=== PATIENT | female | born 1985 ===

== ENCOUNTER 2017-03-26 15:02 | Emergency (ER) | payer SELFPAY ==
[2017-03-26 15:09] VITALS: O2SAT 100
[2017-03-26 15:34] LABS: RBC URINE 1 /hpf (0-3); URINE BACTERIA OCC (<OCC); URINE BILIRUBIN NEGATIVE (NEGATIVE); URINE BLOOD NEGATIVE (NEGATIVE); URINE COLOR Yellow (YELLOW); URINE GLUCOSE (UA) NORMAL (Normal); URINE KETONE NEGATIVE (NEGATIVE); URINE LEUKOCYTE ESTERASE NEG Leu/uL (Negative); URINE PROTEIN NEGATIVE (NEGATIVE); URINE UROBILINOGEN NORMAL mg/dL (0.2-1.0); WBC URINE < 1 /hpf (0-5)
[2017-03-26] MEDS ORDERED: Sodium Chloride 0.9% 1,000 ML IV ONE (15:39)
[2017-03-26] MEDS ORDERED: Sodium Chloride 0.9% 1,000 ML ONE (15:55)
[2017-03-26 16:29] LABS: BASO # 0.1 K/uL (0.0-0.2); BASO % 0.8 % (0.0-2.0); EOS # 0.1 K/uL (0.0-0.7); EOS % 0.5 % (0.0-4.0); HEMATOCRIT 37.4 % (34.0-47.0); LYMPH # 2.7 K/uL (1.0-4.3); LYMPH % 23.8 % (20.0-40.0); MEAN CELL VOLUME 85.3 fL (81.0-99.0); MEAN CORPUSCULAR HEMOGLOBIN 27.1 pg (27.0-31.0); MEAN CORPUSCULAR HGB CONC 31.8 g/dL (33.0-37.0); MEAN PLATELET VOLUME 8.8 fL (7.2-11.7); MONO # 0.8 K/uL (0.0-0.8); MONO % 7.3 % (0.0-10.0); NRBC % 0.1 % (0.0-2.0); RED CELL DISTRIBUTION WIDTH 13.1 % (11.5-14.5); WHITE BLOOD COUNT 11.4 K/uL (4.8-10.8)
--- NOTE | 2017-03-26 16:56 | C.PDOC ---
History Of Present Illness 31-year-old female (8 weeks), presents to the emergency department with complaints of lower abdominal pain x2 days. Patient states she had an episode of vaginal spotting one week ago, which resolved. Denies nausea/vomiting , fevers, chills, shortness of breath, chest pain or any other associated symptoms. No other complaints at this time. Time Seen by Provider: 03/26/17 15:23 Chief Complaint (Nursing): Abdominal Pain History Per: Patient History/Exam Limitations: no limitations Onset/Duration Of Symptoms: Days Past Medical History Reviewed: Historical Data, Nursing Documentation, Vital Signs Vital Signs: Last Vital Signs Temp 98 F 03/26/17 15:06 Pulse 92 H 03/26/17 15:06 Resp 20 03/26/17 15:06 BP 128/84 03/26/17 15:06 Pulse Ox 100 03/26/17 18:17 - [employer] Procedures INJECT/INFUSE NEC (09/30/14) Family History: States: No Known Family Hx - Social History Hx Alcohol Use: No Hx Substance Use: No - Immunization History Hx Tetanus Toxoid Vaccination: No Hx Influenza Vaccination: No Hx Pneumococcal Vaccination: No Review Of Systems Except As Marked, All Systems Reviewed And Found Negative. Constitutional: Negative for: Fever, Chills Cardiovascular: Negative for: Chest Pain Respiratory: Negative for: Shortness of Breath Gastrointestinal: Positive for: Abdominal Pain. Negative for: Nausea, Vomiting Genitourinary: Positive for: Vaginal Bleeding (resolved.). Negative for: Dysuria, Frequency Musculoskeletal: Negative for: Back Pain Skin: Negative for: Rash Neurological: Negative for: Weakness Physical Exam - Physical Exam Appears: Non-toxic, No Acute Distress Skin: Warm, Dry, No Rash Eye(s): bilateral: Normal Inspection Nose: Normal Lips: Normal Appearing Neck: Normal ROM Cardiovascular: Rhythm Regular Respiratory: Normal Breath Sounds, No Accessory Muscle Use Gastrointestinal/Abdominal: Soft, Tenderness (B/L lower-quadrant.), No Guarding , No Rebound Extremity: Normal ROM Neurological/Psych: Oriented x3 ED Course And Treatment - Laboratory Results Result Diagrams: 03/26/17 16:22 03/26/17 18:17 O2 Sat by Pulse Oximetry: 100 - CT Scan/US transvaginal US Other Rad Studies (CT/US): Read By Radiologist, Radiology Report Reviewed CT/US Interpretation: Accession No. : [id number]. Patient Name / ID : LOLI WATSON / [id number]. Exam Date : 03/26/2017 16:37:28 ( Approved ). Study Comment : Sex / Age : F / 31Y. Creator : Shania Schafer. Dictator : Shania Schafer. Rn Research : Program Checker : Shania Schafer. Approver2 : Report Date : 03/26/2017 17:59:46. My Comment : . PROCEDURE: OB Pelvic Ultrasound. HISTORY: PELVIC PAIN, BLEEDING. COMPARISON : None available. FINDINGS: UTERUS: Single Live intrauterine gestation. CRL equivalent to 8 weeks 6 days gestatioin. Gestational sac diameter equivalent to 9 weeks 2 days gestation. age (Ultrasound estimated): 9 weeks 1 day +/- 0 weeks 4 days. Date of delivery (Ultrasound estimated) : 10/28. Heart rate: 165.9 bpm. Stephanie-gestational hemorrhage: None. There is mild low-level echoes seen in the gestational sac of uncertain etiology. Uterus measures 10.7 x 5 x 6 cm. No mass. CERVIX: Trace amount of fluid seen in the cervix. RIGHT OVARY: Measures 3.5 x 2.1 x 3.2 cm. No mass. Normal flow. 1.2 x 0.8 x 1 centimeters cyst seen at the right ovary. LEFT OVARY: Measures 2.9 x 1.9 x 2.8 cm. No mass. Normal flow. FREE FLUID: None. OTHER FINDINGS: None. IMPRESSION: Single intrauterine live with ultrasound estimated gestational age of 9 weeks 1 day +/- 0 weeks 4 days. Estimated date of delivery by ultrasound is 10/28/2017. Suspicious for low- level echo in the gestational sac of uncertain etiology. Trace fluid in the cervix. Progress Note: Bloodwork, US OB/Transvaginal and UA ordered and reviewed. Patient given IV NS bolus. 6:10pm- Original chemistry tubes were hemolyzed and nurses unable to draw more blood. Blood obtained by me, left radial artery stick. patient tolerated well. Disposition Counseled Patient/Family Regarding: Studies Performed, Diagnosis, Need For Followup, Rx Given - Disposition Referrals: [facility] [Outside] Disposition: HOME/ ROUTINE Disposition Time: 19:20 Condition: STABLE Additional Instructions: FOLLOW UP WITH YOUR MEDICAL ART THERAPIST WITHIN 1 WEEK USE TYLENOL NEEDED FOR PAIN DRINK PLENTY OF FLUIDS RETURN TO EMERGENCY ROOM IF SYMPTOMS WORSEN SEGUIMIENTO CON THOMAS OB / FLOCCULATOR OPERATOR DENTRO DE 1 SEMANA USE TYLENOL CALLIE SE NECESITA PARA EL DOLOR BEBER MUCHO LQUIDO DEVUELVA A LA CLOTILDE DE EMERGENCIA SI LOS SNTOMAS EMPEORARAN Instructions: First Trimester Vaginal Bleed (ED) Print Language: ECUADOREAN - POA Present On Arrival: None - Clinical Impression Clinical Impression: Pelvic pain affecting , First trimester bleeding - Scribe Statement The provider has reviewed the documentation as recorded by the Scribdesean Gramajo All medical record entries made by the Scribe were at my direction and personally dictated by me. I have reviewed the chart and agree that the record accurately reflects my personal performance of the history, physical exam, medical decision making, and the department course for this patient. I have also personally directed, reviewed, and agree with the discharge instructions and disposition.
--- NOTE | 2017-03-26 18:01 | US ---
PROCEDURE: OB Pelvic Ultrasound HISTORY: PELVIC PAIN, BLEEDING COMPARISON: None available. FINDINGS: UTERUS: Single Live intrauterine gestation. CRL equivalent to 8 weeks 6 days gestatioin Gestational sac diameter equivalent to 9 weeks 2 days gestation age (Ultrasound estimated): 9 weeks 1 day +/- 0 weeks 4 days Date of delivery (Ultrasound estimated) : 10/28/2017 Heart rate: 165.9 bpm. Stephanie-gestational hemorrhage: None. There is mild low-level echoes seen in the gestational sac of uncertain etiology. Uterus measures 10.7 x 5 x 6 cm. No mass CERVIX: Trace amount of fluid seen in the cervix. RIGHT OVARY: Measures 3.5 x 2.1 x 3.2 cm. No mass. Normal flow. 1.2 x 0.8 x 1 centimeters cyst seen at the right ovary. LEFT OVARY: Measures 2.9 x 1.9 x 2.8 cm. No mass. Normal flow. FREE FLUID: None. OTHER FINDINGS: None. IMPRESSION: Single intrauterine live with ultrasound estimated gestational age of 9 weeks 1 day +/- 0 weeks 4 days. Estimated date of delivery by ultrasound is 10/28/2017. Suspicious for low-level echo in the gestational sac of uncertain etiology. Trace fluid in the cervix.
[2017-03-26 18:29] LABS: CHLORIDE 101 mmol/L (98-107); SODIUM 134 mmol/L (132-148)
[2017-03-26 18:30] LABS: POTASSIUM 3.9 mmol/L (3.6-5.2)
[2017-03-26 18:32] LABS: ALKALINE PHOSPHATASE 58 U/L (38-126); ALT/SGPT 13 U/L (9-52); AST/SGOT 22 U/L (14-36); BILIRUBIN,TOTAL 0.4 mg/dL (0.2-1.3); BLOOD UREA NITROGEN 9 mg/dL (7-17); CARBON DIOXIDE 23 mmol/L (22-30); GFR AFRICAN-AMERICAN > 60; GLUCOSE,RANDOM 108 mg/dL (65-105)
[2017-03-26 18:33] LABS: CALCIUM 8.3 mg/dl (8.6-10.4)
[2017-03-26 19:49] VITALS: BP 105/71; PULSE 80; RESP 16; TEMP 98.8
== END 2017-03-26 19:51 | disposition home or self-care (01) ==
LOC: C.ER 15:02
DX: O26.891 Other specified pregnancy related conditions, first trimester (principal); R10.2 Pelvic and perineal pain; O20.8 Other hemorrhage in early pregnancy; Z3A.09 9 weeks gestation of pregnancy
CPT/HCPCS: 76805; 76817; 80053; 81001; 84702; 84703; 85025; 86850; 86900; 96360; 99285; J7040

== ENCOUNTER 2017-10-28 10:10 | Inpatient (IN) | payer MEDICAID ==
[2017-10-28 11:14] VITALS: BMI 47.4
[2017-10-28] MEDS ORDERED: Penicillin G 5 Million Unit Vial IVPB ONE (11:14)
[2017-10-28] MEDS ORDERED: Lactated Ringer's 1,000 ML IV SCH (11:15)
[2017-10-28] MEDS: Lactated Ringer's 1,000 ML IV SCH ×2 (11:16→12:01)
--- NOTE | 2017-10-28 11:35 | OBADHP ---
Datetime: 10/28/2017 11:24 Admit Comment, IP Provider: Pt is a 32 yo edc by lmp and 10wk us presents w/ c/o painful ctx s since 5am and srom at 11am. Ob hx remarkable for Vit D deficiency pt did not take Vit D during preg . unremarkable. gst abn w/ nl gtt. pt placed on ada diet and had 1lb wt jacquelin pmhx: denies pshx: medic: pnv shx: denies tobacco, illicit drugs or etoh I: 39.1wks labor w/ srom P: admit pt uncertain if she desires epidural pcnG VZ vacc PP Pelvic Type - PN: Adequate Extremities - PN: Normal Abdomen - PN: Normal Back - PN: Normal Lungs - PN: Normal Heart - PN: Normal Neurologic - PN: Normal HEENT - PN: Normal General - PN: Normal Presentation-Admit: Vertex FHR - Baseline A Provider: 130 Amniotic Fluid Color, Provider: Clear Membranes, Provider: Ruptured Contraction Comments Provider: q2-4min Comments, ACOG Physical Exam: gbs+ Gestation - Est Wks by US: 39.1 Pool Provider: Positive NICHD Variability Prov Fetus A: Moderate 6-25bpm NICHD Accel Fetus A IP Provider: [id number] FHR Category Provider Fetus A: Category I NICHD Decel Fetus A IP Provider: None Dilatation, Provider: 5 Effacement, Provider: 90 Station, Provider: -2 Genitourinary Exam: Normal
[2017-10-28 11:41] LABS: BASO # 0.1 K/uL (0.0-0.2); BASO % 0.7 % (0.0-2.0); EOS % 0.1 % (0.0-4.0); HEMOGLOBIN 13.2 g/dL (11.0-16.0); LYMPH # 1.9 K/uL (1.0-4.3); LYMPH % 17.9 % (20.0-40.0); MEAN CELL VOLUME 84.3 fL (81.0-99.0); MEAN CORPUSCULAR HEMOGLOBIN 28.9 pg (27.0-31.0); MEAN CORPUSCULAR HGB CONC 34.3 g/dL (33.0-37.0); MEAN PLATELET VOLUME 10.9 fL (7.2-11.7); MONO # 0.3 K/uL (0.0-0.8); MONO % 3.3 % (0.0-10.0); NEUT # 8.2 K/uL (1.8-7.0); RBC 4.58 Mil/uL (3.80-5.20); RED CELL DISTRIBUTION WIDTH 14.6 % (11.5-14.5); WHITE BLOOD COUNT 10.5 K/uL (4.8-10.8)
[2017-10-28] MEDS ORDERED: Bupivacaine HCl 0.25% PF (10 ml) Inj ONE ×2 (12:04→12:56)
[2017-10-28] MEDS ORDERED: Oxytocin 30 UNIT 30 UNITS/500 ML BAG IV ONE (14:52)
[2017-10-28] MEDS ORDERED: Lidocaine 2% Inj (20ml) ONE (15:38)
[2017-10-28] MEDS ORDERED: Oxycodone/Acetaminophen 5/325 mg Tab PO PRN (16:00)
[2017-10-28] MEDS ORDERED: Benzocaine/Menthol 20%-0.5% Topical Spray (60 ml) TOP PRN (16:00)
[2017-10-28] MEDS ORDERED: Varicella Virus Vaccine Inj SC ONE (16:00)
[2017-10-28] MEDS ORDERED: Oxytocin 30 UNIT 30 UNITS/500 ML BAG IV PRN (16:04)
--- NOTE | 2017-10-28 16:22 | OBDS ---
DELIVERY PERSONNEL Delivery Doctor: Raghav Lee MD Case Work Aide: Chris Smith RN Anesthesiologist: Anali Mcclelland MD MATERNAL INFORMATION Delivery Anesthesia: Epidural Medications in Delivery: pitocin Placenta Cultured: No Maternal Complications: None Provider Comments: delivery note intrapartum dx: 39.1wks; labor with srom pp dx: same procedure: . placenta delivered spontaneously and intact. repair of 2nd degree ob: robert pereira findings: viable male 9_9 ebl: 300cc no complications remained in br with pt. LABOR SUMMARY EDC: 11/03/2017 00:00 No. Babies in Womb: 1 Attempted: No Labor Anesthesia: Epidural LABOR INFORMATION Reason for Induction: Not Applicable Onset of Labor: 10/28/2017 07:00 Complete Dilatation: 10/28/2017 13:30 Oxytocin: N/A Group B Beta Strep: Positive Antibiotics # of Doses: 1 Antibiotics Time of Last Dose: 1134 Steroids Given: None Reason Steroids Not Administered: Not Applicable MEMBRANES Membranes Rupture Method: Spontaneous Rupture of Membranes: 10/28/2017 07:00 Length of Rupture (hrs): 8.28 Amniotic Fluid Color: Clear Amniotic Fluid Amount: Moderate Amniotic Fluid Odor: Normal STAGES OF LABOR Stage 1 hrs: 6 Stage 1 min: 30 Stage 2 hrs: 1 Stage 2 min: 47 Stage 3 hrs: 0 Stage 3 min: 6 Total Time in Labor hrs: 8 Total Time in Labor min: 23 VAGINAL DELIVERY Episiotomy: None Laceration Extension: Second Degree Laceration Type: Perineal Laceration Repair: Yes Laceration Repair Note: repair with 3-0 chromic running lock sutures. Initial Vag Sponge Count: 10 Initial Vag Sharps Count: 0 BABY A INFORMATION Delivery Date/Time: 10/28/2017 15:17 Method of Delivery: Vaginal Born in Route : No Forceps: N/A Vacuum Extraction: N/A Shoulder Dystocia : No SHOULDER DYSTOCIA BABY A Delivery Date/Time: 10/28/2017 15:17 PRESENTATION/POSITION BABY A Presentation: Compound Cephalic Presentation: Vertex Vertex Position: Right Occipital Posterior PLACENTA INFORMATION BABY A Placenta Delivery Time : 10/28/2017 15:23 Placenta Method of Delivery: Spontaneous Placenta Status: Delivered SCORES BABY A Heart Rate 1 min: >100 bpm Resp Effort 1 min: Good Cry Reflex Irritability 1 min: Cough or Sneeze or Pulls Away Muscle Tone 1 min: Active Motion Color 1 min: Body [place], Extremities Blue SCORE 1 MIN: 9 Heart Rate 5 min: >100 bpm Resp Effort 5 min: Good Cry Reflex Irritability 5 min: Cough or Sneeze or Pulls Away Muscle Tone 5 min: Active Motion Color 5 min: Body [place], Extremities Blue SCORE 5 MIN: 9 INFORMATION BABY A Gestational Age at Delivery: 39.1 Gestational Status: Term Infant Outcome : Liveborn Infant Condition : Stable Sex: Male IDENTIFICATION/MEDS BABY A ID Band Number: [id number] ID Band Location: Left Leg; Left Arm Sensor Applied: Yes Sensor Number: [id number] Sensor Location : Cord Clamp Vitamin K Given : Not Given Erythromycin Given: Not Given WEIGHT/LENGTH BABY A Birthweight (gms): 3225 Infant Weight (lb): 7 Infant Weight (oz): 2 Length Inches: 19.50 Infant Length cms: 49.5 CORD INFORMATION BABY A No. Cord Vessels: 3 Nuchal Cord : N/A Cord Blood Taken: Yes Suction: Mouth; Nose ASSESSMENT BABY A Infant Complications: None Physical Findings at Delivery: Within Normal Limits; Caput Succedaneum Respirations: Appears Normal Filling Room Operator/ALS Called : No Care By: Garrett Urena/Rey Ball RN Transferred To: Remains with Mother
[2017-10-28] MEDS ORDERED: Lidocaine 2% Inj (20ml) IV ONE (17:02)
[2017-10-29 07:18] LABS: BASO # 0.1 K/uL (0.0-0.2); BASO % 0.5 % (0.0-2.0); HEMOGLOBIN 11.9 g/dL (11.0-16.0); LYMPH # 3.5 K/uL (1.0-4.3); MEAN CELL VOLUME 85.3 fL (81.0-99.0); MEAN CORPUSCULAR HEMOGLOBIN 29.2 pg (27.0-31.0); MEAN CORPUSCULAR HGB CONC 34.2 g/dL (33.0-37.0); MONO % 6.1 % (0.0-10.0); NEUT % 72.4 % (50.0-75.0); RBC 4.09 Mil/uL (3.80-5.20); RED CELL DISTRIBUTION WIDTH 14.6 % (11.5-14.5)
[2017-10-29 07:24] LABS: WHITE BLOOD COUNT 16.6 K/uL (4.8-10.8)
[2017-10-29] MEDS: Multiple Vitamins Tab PO SCH (09:56)
--- NOTE | 2017-10-29 14:23 | OBPPN ---
Datetime: 10/29/2017 14:19 PP Pain Prov: Within normal limits PP Nausea Prov: Denies PP Flatus Prov: Yes PP BM Prov: No PP Heart Prov: Normal PP Lungs Prov: Normal PP Abdomen/Uterus Prov: Normal PP Lochia Prov: Normal PP Vulva/Perineum Prov: Normal PP CVA Tenderness Prov: Normal PP Extremities Prov: Normal PP C/S Incision Prov: Not Applicable PP Progress Prov: Normal PP Impression Prov: Normal progression PP Plan Prov: Continue present management PP Progress Note Prov: S-patient reports that her pain si well controlled.she is tolerating reg diet .she is ambulating and voiding without difficulty O-VSS Afebrile FUndus firm and below umbilicus Abdomen soft and nontender extremities no calf tenderness A/P Patient s/p vaginal delivery PPD 1 doing well -continue roitine ppcare Vital Signs Provider PP: Reviewed; Within Normal Limits
[2017-10-30] MEDS: Multiple Vitamins Tab PO SCH (09:08)
[2017-10-30] MEDS ORDERED: Influenza Vaccine 60 mcg/0.5 mL SYR (4YR UP) IM ONE (09:14)
[2017-10-30] MEDS ORDERED: Varicella Virus Vaccine Inj SC ONE (10:00)
[2017-10-30 16:34] VITALS: RESP 20
[2017-10-31 02:26] VITALS: BP 133/81; PULSE 70; TEMP 99.6; O2SAT 97
== END 2017-10-30 21:15 | disposition home or self-care (01) | DRG 373 ==
LOC: C.EROB 10:10 → C.4D 11:04 → C.4M 17:25
PROVIDERS: ADMIT Obstetrics & Gynecology; ATTEND Obstetrics & Gynecology
PROC: 0KQM0ZZ Repair Perineum Muscle, Open Approach (ICD-10-PCS; principal; 2017-10-28)
PROC: 10E0XZZ Delivery of Products of Conception, External Approach (ICD-10-PCS; 2017-10-28)
DX: O70.1 Second degree perineal laceration during delivery (principal); Z68.41 Body mass index [BMI] 40.0-44.9, adult; Z3A.39 39 weeks gestation of pregnancy; Z37.0 Single live birth